=== PATIENT | female | born 1980 | race Caucasian/White ===

== ENCOUNTER 2022-05-30 11:13 | Emergency (ER) | payer BC ==
[2022-05-30] MEDS ORDERED: IBUPROFEN600 MG PO (12:12)
[2022-05-30] MEDS ORDERED: CYCLOBENZAPRINE10 MG PO (12:12)
[2022-05-30] MEDS ORDERED: HYDROCODON-ACE1 EAC4 PO (12:14)
== END 2022-05-30 12:56 | disposition home or self-care (01) ==
LOC: ER1 11:13
DX: S52.571A Other intraarticular fracture of lower end of right radius, initial encounter for closed fracture (principal); S52.611A Displaced fracture of right ulna styloid process, initial encounter for closed fracture; F17.290 Nicotine dependence, other tobacco product, uncomplicated; Z96.643 Presence of artificial hip joint, bilateral; W19.XXXA Unspecified fall, initial encounter
CPT/HCPCS: 29125; 73090; 73130; 96372; 99283; J1885